=== PATIENT | female | born 1950 | race Caucasian/White ===

== ENCOUNTER → 2017-03-17 | Day surgery (SDC) | payer MEDICARE, BC ==
[2017-03-15 13:10] LABS: BASOPHILS % 0.5 % (0.0-1.0); EOSINOPHILS # (AUTO) 0.2 (0.0-0.4); EOSINOPHILS % 2.3 % (0.0-6.0); HEMATOCRIT 37.9 % (34.2-44.1); HEMOGLOBIN 12.2 g/dL (12.0-16.0); LYMPHOCYTES % 38.5 % (18.0-39.1); MEAN CORPUSCULAR HEMOGLOBIN 30.2 pg (28-32); MEAN CORPUSCULAR HGB CONC 32.2 g/dL (31-35); MEAN CORPUSCULAR VOLUME 93.8 fL (81-99); MONOCYTES # (AUTO) 0.7 (0.2-0.8); MONOCYTES % 8.6 % (4.4-11.3); NEUTROPHILS # (AUTO) 3.9 (2.1-6.9); NEUTROPHILS % 49.8 % (38.7-80.0); PLATELET COUNT 263 x10e3/uL (140-360); RED BLOOD COUNT 4.04 x10e6/uL (3.6-5.1)
[~2017-03-17] MED LIST: ARTHROTEC 75 T1 EAC1; CARBAMAZEPINE200 MG PO; FENTANYL CITRATE/PF 100MCG/2 ML INJ ONE; FLORASTOR250 M1; GABAPENTIN400 MG PO; HYDROCHLOROQUINE; HYDROXYCHLOROQ200 MG PO; ISOSORBIDE MONO20 MG PO; L-LYSINE500 M2 PO; LIDOCAINE HCL 2% LOCAL INJ 5 ML SDV VIAL INJ ONE; LOSARTAN POTAS100 MG PO; LOVASTATIN40 MG PO; METHOCARBAMOL750 MG PO; MIDAZOLAM HCL 2 MG/2 ML VIAL ONE; NORCO 10-325 T1 EACH PO; ONDANSETRON HCL INJ 2 MG/ML VIAL ONE; PRISTIQ ER50 MG PO; PROPOFOL IV EMULSION 10 MG/ML 50 ML VIAL ONE; QUETIAPINE FUM100 MG PO; Z LAMICTAL; Z.0.ABILIFY2 MG; Z.0.AMBIEN10 MG; Z.0.CARTIA XT300 MG; Z.0.CYMBALTA60 MG; Z.0.LASIX20 MG; Z.0.SINGULAIR10 MG; Z.0.ZEGERID 20 MG1 E; ZINC SULFATE220 M1 PO; [UNRECOGNIZED DRUG - MIXTURE]
[2017-03-17 15:09] LABS: WBC,FECAL (FECAL LACTOFERRIN) NEGATIVE (NEGATIVE)
[2017-03-17 22:17] LABS: C DIFFICILE TOXIN A&B AMP PROB NEGATIVE (NEGATIVE)
--- NOTE | 2017-03-19 09:14 | Operative Report ---
DATE OF PROCEDURE: March 17, 2017 PROCEDURES PERFORMED: 1. Esophagogastroduodenoscopy with esophageal dilatation and biopsies. 2. Colonoscopy with polypectomy and biopsies. REFERRING PHYSICIAN: Dr. Ronald Hauser INDICATIONS FOR EGD: Dysphagia, heartburn, indigestion. INDICATIONS FOR COLONOSCOPY: Colorectal cancer screening, chronic diarrhea. MEDICATION: Patient was done under MAC. Please see anesthesiologist note. PROCEDURE IN DETAIL: With the patient in left lateral decubitus position, flexible fiberoptic Olympus gastroscope was introduced into the esophagus under direct visualization without any difficulty. There were some scattered whitish yellowish plaques noted in the esophagus and those were brushed and sent to stain for Virginie. There was some patchy erythema noted in distal esophagus. A mild stricture was noted at the GE junction that was dilated to size 52-[place] Baltazar. The scope was then advanced with ease into her stomach. Mucosa overlying the antrum and the body revealed some diffuse erythema and moderate edema, and biopsies were obtained and sent to stain for H. pylori. The pylorus was of normal contour and shape. It was intubated with ease, and the scope was advanced all the way to the second portion of the duodenum. The scope was then withdrawn slowly, and the mucosa overlying the proximal second portion appeared to be within normal limits. Biopsies were obtained to rule out sprue considering patient's history of diarrhea. The scope was then withdrawn back into the stomach and retroflexed, and the mucosa overlying the fundus and the cardia appeared to be within normal limits. The scope was then straightened out. The stomach was decompressed. The scope was subsequently withdrawn. Patient tolerated the procedure well. IMPRESSION: 1. Rule out Virginie esophagitis. 2. Esophageal stricture, gastroesophageal junction, dilated to size 52-[place] Baltazar. 3. Gastritis, biopsied. Biopsies sent to stain for Helicobacter pylori. 4. Rule out sprue. PLAN: Follow up histology. Initiate Protonix 40 mg 1 p.o. q.a.m. a.c. Patient was then turned around. After adequate lubrication of the anal canal, a flexible fiberoptic Olympus colonoscope was inserted into the rectum with ease and advanced all the way to the cecum. One polyp was noted in the cecum that was hot biopsied, and polypectomy site was hemoclipped. The ileocecal valve was intubated, and the scope was advanced into her terminal ileum. Biopsies were obtained. The scope was then withdrawn back into the colon. It was then withdrawn slowly. Mucosa overlying the ascending and the transverse appeared to be within normal limits. One polyp in the descending colon was removed per hot biopsy forceps and it bled transiently post polypectomy and the site was also hemoclipped. Diverticular disease was noted to involve the distal descending and the sigmoid colon and there was also some patchy erythema and low-grade edema noted in the descending and the sigmoid, and random biopsies were obtained. One polyp was snared from the sigmoid colon. The rectum appeared to be within normal limits. The scope was then retroflexed into the distal rectum, and small internal hemorrhoids were noted, none of which was actively bleeding. The scope was then straightened out. The rectosigmoid area as well as the distal rectal area were decompressed. The scope was subsequently withdrawn after securing an adequate stool specimen that was sent for the appropriate stool studies. Patient tolerated the procedure well. IMPRESSION: 1. Cecal polyp, hot biopsied, polypectomy site hemoclipped. 2. Descending colon polyp, hot biopsied. 3. Diverticulosis. 4. Sigmoid colon polyp, snared. 5. Internal hemorrhoids, none actively bleeding. PLAN: Follow up histology. Follow up stool studies. Initiate Bentyl 10 mg 1 p.o. t.i.d. VSL#3 DS 1 p.o. b.i.d. Patient will need a followup colonoscopy in 3 years. Job#: [id number] cc:RONALD HAUSER MD
== END | disposition home or self-care (01) ==
LOC: OR 11:10
PROVIDERS: ATTEND Internal Medicine Gastroenterology
DX: K52.9 Noninfective gastroenteritis and colitis, unspecified (principal); K31.7 Polyp of stomach and duodenum; K29.50 Unspecified chronic gastritis without bleeding; D12.0 Benign neoplasm of cecum; D12.4 Benign neoplasm of descending colon; K63.89 Other specified diseases of intestine; K22.2 Esophageal obstruction; K57.30 Diverticulosis of large intestine without perforation or abscess without bleeding; K21.9 Gastro-esophageal reflux disease without esophagitis; K64.8 Other hemorrhoids; M19.90 Unspecified osteoarthritis, unspecified site; J45.909 Unspecified asthma, uncomplicated; I10 Essential (primary) hypertension; E66.01 Morbid (severe) obesity due to excess calories; F31.9 Bipolar disorder, unspecified; F41.9 Anxiety disorder, unspecified; Z01.810 Encounter for preprocedural cardiovascular examination; Z01.812 Encounter for preprocedural laboratory examination; Z79.82 Long term (current) use of aspirin; Z68.41 Body mass index [BMI] 40.0-44.9, adult
CPT/HCPCS: 36415; 43239; 43450; 45384; 45385; 83630; 83993; 85025; 87045; 87106; 87177; 87205; 87328; 87493; 88305; 88312; 93005; J2001; J2250; J2405; 45380